=== PATIENT | male | born 1975 | race Caucasian/White ===

== ENCOUNTER 2016-11-12 14:00 | Emergency (ER) | payer MEDICARE, OTHER ==
[~2016-11-12 14:00] MED LIST: ACETAMINOPHEN650 M1 PO; AMBIEN5 MG PO; DULCOLAX5 MG PO; ENULOSE10 GM/15 M PO; FLAGYL500 MG PO; HYDROCODON-ACE1 EAC2 PO; KLONOPIN0.5 MG PO; LEVAQUIN500 MG PO; MAALOX PLUS30 ML PO; MILK OF MA400 MG/5 M PO; NEURONTIN800 MG PO; OMEPRAZOLE40 MG PO; ONDANSETRON HCL4 MG PO; PERCOCET 7.5-31 EACH PO; ROBAXIN-750750 MG PO
[2016-11-12 14:30] LABS: BASO % 0.2 % (0.2-1.2); EOS % 0.6 % (0.8-7.0); GRAN # 4.1 10_X3_uL (1.8-5.4); GRAN % 64.8 % (34.0-67.9); HEMOGLOBIN 12.5 g/dL (13.7-17.5); LYMPH # 1.7 10_X3_uL (1.3-3.6); LYMPH % 27.1 % (21.8-53.1); MEAN CORPUSCULAR HEMOGLOBIN 29.2 pg (27.0-33.0); MEAN CORPUSCULAR HGB CONC 32.9 g/dL (32.0-36.0); MEAN CORPUSCULAR VOLUME 88.8 fL (79-92); MEAN PLATELET VOLUME 9.6 fl (7.5-11.5); MONO # 0.5 10_X3_uL (0.3-0.8); MONO % 7.3 % (5.3-12.2); PLATELET COUNT 242 x10_3/uL (163-337); RED BLOOD COUNT 4.28 x10_6/uL (4.6-6.1); RED CELL DISTRIBUTION WIDTH 13.8 % (11.6-14.4); WHITE BLOOD COUNT 6.3 x10_3/uL (4.2-9.1)
[2016-11-12 14:42] LABS: BLOOD UREA NITROGEN 9 mg/dL (7-18); CALCIUM 9.1 mg/dL (8.7-10.7); CARBON DIOXIDE 24 mmol/L (21-32); CREATININE 0.8 mg/dL (0.6-1.3); GLUCOSE,RANDOM 131 mg/dL (70-99); POTASSIUM 3.4 mmol/L (3.5-5.1); SODIUM 137 mmol/L (136-145)
== END 2016-11-12 15:41 | disposition home or self-care (01) ==
LOC: ER 14:00
PROVIDERS: General Practice
DX: J84.9 Interstitial pulmonary disease, unspecified (principal); R07.89 Other chest pain; F41.9 Anxiety disorder, unspecified; K21.9 Gastro-esophageal reflux disease without esophagitis; G89.4 Chronic pain syndrome; Z79.899 Other long term (current) drug therapy; Z88.8 Allergy status to other drugs, medicaments and biological substances; F17.220 Nicotine dependence, chewing tobacco, uncomplicated
CPT/HCPCS: 36415; 71010; 80048; 85025; 93005; 99284; 99285-25

== ENCOUNTER 2016-12-14 19:26 | Observation (INO) | payer MEDICARE, OTHER | END 2016-12-16 10:36 | disposition home or self-care (01) | LOC: ER 19:26 → MS 22:14 | PROVIDERS: ADMIT Family Medicine | DX: J18.9 Pneumonia, unspecified organism (principal); R07.89 Other chest pain; R91.8 Other nonspecific abnormal finding of lung field; R42 Dizziness and giddiness; I10 Essential (primary) hypertension; Z79.891 Long term (current) use of opiate analgesic; Z79.899 Other long term (current) drug therapy; Z88.6 Allergy status to analgesic agent ==

== ENCOUNTER → 2017-01-23 | Day surgery (SDC) | payer MEDICARE, OTHER ==
[~2017-01-23] VITALS: Ht 172.7 cm; Wt 57.2 kg
== END ==
LOC: OPS 09:38
PROC: 0DB48ZX Excision of Esophagogastric Junction, Via Natural or Artificial Opening Endoscopic, Diagnostic (ICD-10-PCS; principal; 2017-01-23)
PROC: 0DB78ZX Excision of Stomach, Pylorus, Via Natural or Artificial Opening Endoscopic, Diagnostic (ICD-10-PCS; 2017-01-23)
PROC: 0DJD8ZZ Inspection of Lower Intestinal Tract, Via Natural or Artificial Opening Endoscopic (ICD-10-PCS; 2017-01-23)
DX: D50.9 Iron deficiency anemia, unspecified (principal); K62.5 Hemorrhage of anus and rectum; K29.50 Unspecified chronic gastritis without bleeding; K21.0 Gastro-esophageal reflux disease with esophagitis; F41.9 Anxiety disorder, unspecified; E05.90 Thyrotoxicosis, unspecified without thyrotoxic crisis or storm; G47.00 Insomnia, unspecified; R63.4 Abnormal weight loss; Z68.1 Body mass index [BMI] 19.9 or less, adult; F17.210 Nicotine dependence, cigarettes, uncomplicated; M54.9 Dorsalgia, unspecified; G89.29 Other chronic pain; Z88.6 Allergy status to analgesic agent; Z79.899 Other long term (current) drug therapy; Z79.891 Long term (current) use of opiate analgesic
CPT/HCPCS: 43239; 45378; 99070; J2704